=== PATIENT | female | born 1990 | race Caucasian/White ===

== ENCOUNTER 2019-09-15 09:41 | Inpatient (IN) | payer SELFPAY ==
[~2019-09-15] VITALS: Ht 167.6 cm; Wt 127.0 kg
--- NOTE | 2019-09-15 10:16 | NUR ---
CONTACT WITH PT, 29 MYR OLD FEMALE HERE WITH C/O "REALLY BAD BACK PAIN (FOR A MONTH), I HAVE A BUNCH OF RED DOTS GOING UP MY LEGS (BEGAN YESTERDAY). PT WITH INCREASED RR. ENC RELAXATION BREATHING. PTS MOTHER AND GRANDMOTHER AT BEDSIDE.
--- NOTE | 2019-09-15 10:29 | NUR ---
REPORT TO LESLY CALZADA
--- NOTE | 2019-09-15 10:33 | NUR ---
REPORT FROM ZHENG PATEL. PT RESTING IN ROOM WIHT FAMILY AT BS. VSS. DR. POTTS TO BS FOR ASSESSMENT. AWAITING ORDERS.
[2019-09-15] MEDS ORDERED: METHOCARBAMOL 750 MG TABLET ONE (10:37)
[2019-09-15] MEDS ORDERED: KETOROLAC 60 MG/2 ML ONE (10:38)
--- NOTE | 2019-09-15 10:44 | NUR ---
PT UP SELF TO RR TO PROVIDE UA SAMPLE. PT MEDICATED PER MAR. PT TOLERATED WELL. VSS.
[2019-09-15 10:57] LABS: CULTURE INDICATED? NO; HCG UR SG 1.014 (1.003-1.030); MICROSCOPIC AUTO
[2019-09-15] MEDS ORDERED: METHOCARBAMOL 750 MG TABLET PO ONE (11:00)
[2019-09-15] MEDS ORDERED: KETOROLAC 30 MG/1 ML IM ONE (11:00)
--- NOTE | 2019-09-15 11:19 | NUR ---
NEW ORDERS RECEIVED FOR LABS AND US.
[2019-09-15 11:43] LABS: ALANINE AMINOTRANSFERASE 34 U/L (12-78); ALBUMIN 3.1 g/dL (3.4-5.0); ANION GAP 6 mmol/L (5-15); CALCIUM 8.6 mg/dL (8.5-10.1); CHLORIDE 110 mmol/L (98-107); CREATININE 0.54 mg/dL (0.55-1.02)
[2019-09-15 11:45] LABS: ALKALINE PHOSPHATASE 62 U/L (45-117); BILIRUBIN,TOTAL 0.5 mg/dL (0.2-1.0)
--- NOTE | 2019-09-15 11:46 | NUR ---
PT RESTING IN ROOM WITH FAMILY AT BS. VSS. NO NEEDS EXPRESSED. US RESULTED. AWAITING LAB RESULTS.
[2019-09-15 12:08] LABS: MEAN CORPUSCULAR HGB CONC 32.1 g/dL (32.4-35.8); MEAN CORPUSCULAR VOLUME 74.7 fL (80-100); MEAN PLATELET VOLUME 8.6 fL (7.4-10.4); RED BLOOD COUNT 3.85 x10^6/uL (3.82-5.3); RED CELL DISTRIBUTION WIDTH 19.7 % (9.6-15.2)
[2019-09-15 12:11] LABS: PLATELET COUNT 35 x10^3/uL (130-400)
--- NOTE | 2019-09-15 12:11 | NUR ---
LAB CALLED REGARDING DELAYED RESULTS. CRITICAL LABS READ BACK AND REPEATED TO DR. POTTS.
[2019-09-15 12:14] LABS: MD YES
[2019-09-15 12:19] LABS: BAND#(MANUAL) 1.79 x10^3/uL; BANDS%(MANUAL) 5 % (0-7); EOS#(MANUAL) 0.36 x10^3/uL (0.0-0.4); EOS% (MANUAL) 1 % (1-7); LYMPHS% (MANUAL) 35 % (22-44); MONOS#(MANUAL) 0.71 x10^3/uL (0.3-2.7); MONOS% (MANUAL) 2 % (2-9); SEG#(MANUAL) 3.57 x10^3/uL (1.8-6.8); SEGS% (MANUAL) 10 % (42-75)
[2019-09-15 12:20] LABS: OTHER CELLS # (MANUAL) 16.78 x10^3/uL (0-0); OTHER CELLS % (MANUAL) 47 % (0-0)
--- NOTE | 2019-09-15 12:21 | NUR ---
PT RESTING IN ROOM. VSS. IV ESTABLISHED. NEW ORDERS RECEIVED. AWAITING CT.
[2019-09-15] MEDS ORDERED: MORPHINE SULFATE 4 MG/ML, 1ML ONE (12:27)
[2019-09-15 12:29] LABS: <PLATELET ESTIMATE> DECREASED
[2019-09-15 12:30] LABS: <PLT MORPHOLOGY> NORMAL PLT MORPH; ANISOCYTOSIS 1+; HYPOCHROMIA 1+; MICROCYTOSIS 1+; OVALOCYTES 1+
[2019-09-15] MEDS ORDERED: MORPHINE SULFATE 4 MG/ML, 1ML IVPush PRN (12:30)
[2019-09-15] MEDS ORDERED: GADOTERATE 10 MMOL/20 ML SYR ONE (13:19)
--- NOTE | 2019-09-15 13:50 | NUR ---
PT RESTING IN ROOM WITH FAMILY AT BS. VSS. AWAITING MRI READ. PT STATES IMPROVED PAIN.
--- NOTE | 2019-09-15 15:25 | NUR ---
REPORT TO ZHENG CABRERA. PT READY FOR TRANSPORT.
[2019-09-15 15:47] VITALS: BP 124/78
[2019-09-15] MEDS ORDERED: ONDANSETRON ODT 4 MG PO PRN (16:30)
[2019-09-15] MEDS ORDERED: ACETAMINOPHEN 325 MG TABLET PO PRN (16:30)
[2019-09-15] MEDS ORDERED: ONDANSETRON 2MG/ML, 2ML IVPush PRN (16:30)
[2019-09-15] MEDS ORDERED: ENALAPRILAT 1.25 MG/ML, 2ML IVPush PRN (16:30)
[2019-09-15] MEDS ORDERED: METHOCARBAMOL 500 MG TABLET PO PRN (16:30)
[2019-09-15] MEDS ORDERED: LABETALOL 5MG/ML, 20ML IVPush PRN (16:30)
[2019-09-15] MEDS ORDERED: morphine SULFATE 10 MG/ML, 1ML IVPush PRN (16:30)
[2019-09-15] MEDS ORDERED: POLYETHYLENE GLYCOL 17 GM PACKET PO PRN (16:30)
[2019-09-15] MEDS ORDERED: LIDODERM 5% PATCH TD PRN (16:30)
[2019-09-15] MEDS ORDERED: BISACODYL 10 MG SUPP PR PRN (16:30)
[2019-09-15] MEDS ORDERED: OXYcodone IR 5MG TABLET PO PRN (16:30)
[2019-09-16] MEDS ORDERED: SENNA/DOCUSATE TABLET PO SCH (09:00)
== END 2019-09-15 18:41 | disposition short-term general hospital (02) | DRG 835 ==
LOC: ED 11:13 → 4NW 14:32
PROVIDERS: ADMIT Family Medicine; ATTEND Family Medicine
DX: C91.00 Acute lymphoblastic leukemia not having achieved remission (principal); Z68.42 Body mass index [BMI] 45.0-49.9, adult; D64.9 Anemia, unspecified; D69.6 Thrombocytopenia, unspecified; E11.9 Type 2 diabetes mellitus without complications; E66.01 Morbid (severe) obesity due to excess calories; E88.09 Other disorders of plasma-protein metabolism, not elsewhere classified; K76.0 Fatty (change of) liver, not elsewhere classified; K80.20 Calculus of gallbladder without cholecystitis without obstruction; M19.90 Unspecified osteoarthritis, unspecified site; M51.16 Intervertebral disc disorders with radiculopathy, lumbar region; Z86.73 Personal history of transient ischemic attack (TIA), and cerebral infarction without residual deficits; Z87.442 Personal history of urinary calculi
CPT/HCPCS: 36415; 72158; 76770; 80053; 81001; 81025; 83615; 84550; 85025; G0378; J1885; A9575; J2270

== ENCOUNTER 2019-10-06 14:31 | Inpatient (IN) | payer MEDICAID, OTHER ==
[~2019-10-06] VITALS: Ht 167.6 cm; Wt 147.6 kg
--- NOTE | 2019-10-06 14:52 | NUR ---
TASK RN: THIS RN IN TO ASSESS PT. PT GIVEN GOWN AND ASKED TO CHANGE. THIS RN LEFT FOR PRIVACY. FAMILY BEDSIDE.
--- NOTE | 2019-10-06 14:57 | NUR ---
TASK RN: 29 Y/O FEMALE PRESENTS TO ED WITH C/O N/V. PER PT "I'VE BEEN NAUSEOUS AND VOMITING FOR A FEW DAYS. THE LAST TIME I THREW UP WAS TODAY ABOUT 2PM. I'VE THROWN UP TWICE TODAY. I HAD CHEMO ON WEDNESDAY. I TOOK SOME ZOFRAN AT 0600 TODAY. I CALLED MY ONC . THEY COULDN'T GET ME IN SO THEY TOLD ME TO COME HERE." PT PLACED ON CONT PULSE OX,NIBP. PT IN GOWN AND WARM BLANKETS GIVEN. FAMILY BEDSIDE. NO C/O TRAUMA, CP, SOB, D.
--- NOTE | 2019-10-06 15:01 | NUR ---
PT ON REVERSE ISO. ALL FAMILY MEMBERS AND PT HAVE MASK ON WELL.
--- NOTE | 2019-10-06 15:23 | NUR ---
I AM ASSUMING CARE OF THIS PT FROM BRYCE (ZHENG) AT THIS TIME. SBAR REPORT WAS EXCHANGED AT THE BEDSIDE.
--- NOTE | 2019-10-06 15:25 | NUR ---
TASK RN: BEDSIDE REPORT TO ZHENG MO.
[2019-10-06 16:21] LABS: ANION GAP 12 mmol/L (5-15); CALCIUM 7.4 mg/dL (8.5-10.1); CHLORIDE 92 mmol/L (98-107)
[2019-10-06 16:24] LABS: ALANINE AMINOTRANSFERASE 403 U/L (12-78); ALKALINE PHOSPHATASE 183 U/L (45-117); CREATININE 0.81 mg/dL (0.55-1.02); TOTAL PROTEIN 3.9 g/dL (6.4-8.2)
[2019-10-06 16:27] LABS: BILIRUBIN,TOTAL 15.1 mg/dL (0.2-1.0)
--- NOTE | 2019-10-06 16:29 | NUR ---
BREAK (RN) TO ATTEMPT PORT ACCESS.
--- NOTE | 2019-10-06 16:29 | NUR ---
UNABLE TO OBTAIN PORT ACCESS AFTER TWO ATTEMPTS.
[2019-10-06 16:35] LABS: MEAN CORPUSCULAR HGB CONC 31.1 g/dL (32.4-35.8); MEAN CORPUSCULAR VOLUME 86.6 fL (80-100); MEAN PLATELET VOLUME 10.9 fL (7.4-10.4); PLATELET COUNT 126 x10^3/uL (130-400); RED BLOOD COUNT 3.23 x10^6/uL (3.82-5.3); RED CELL DISTRIBUTION WIDTH 20.5 % (9.6-15.2)
--- NOTE | 2019-10-06 16:40 | NUR ---
Doni RN: Port in L upper chest accessed utilizing sterile technique w/ 1" needle. Pt tolerated well, port flushes w/out difficulty or discomfort but unable to draw back blood after multiple flushes and repositioning.
--- NOTE | 2019-10-06 16:51 | NUR ---
PT AMBULATED TO THE RESTROOM WITH A STEADY GAIT. URINE SAMPLE PROVIDED, AND WALKED TO THE LAB FOR ANALYSIS. Addendum: 10/06/19 at 1703 by ROMANA urine sample not yet provided. unable to void. pt is very weak with ambulation. wheelchair provided
[2019-10-06 17:11] LABS: MD YES
--- NOTE | 2019-10-06 17:57 | NUR ---
NOT TO TRANSFUSE PER ERP.
[2019-10-06] MEDS ORDERED: ONDANSETRON 2MG/ML, 2ML ONE (18:11)
--- NOTE | 2019-10-06 19:06 | NUR ---
report from lina cruz
--- NOTE | 2019-10-06 19:11 | NUR ---
RADHA (RN) IS ASSUMING CARE OF THIS PT AT THIS TIME. SBAR REPORT WAS EXCHANGED AT THE BEDSIDE.
[2019-10-06 19:12] LABS: BAND#(MANUAL) 0.02 x10^3/uL; BANDS%(MANUAL) 2 % (0-7); LYMPH#(MANUAL) 0.15 x10^3/uL (1-3.4); LYMPHS% (MANUAL) 15 % (22-44); MONOS#(MANUAL) 0.03 x10^3/uL (0.3-2.7); MONOS% (MANUAL) 3 % (2-9); NRBC % (MANUAL) 2 % (0-1); SEGS% (MANUAL) 80 % (42-75)
[2019-10-06 19:13] LABS: ANISOCYTOSIS 2+; BASOPHILLIC STIPPLING 1+; HYPOCHROMIA 1+; MICROCYTOSIS 1+; POLYCHROMASIA 1+
[2019-10-06 19:14] LABS: HOWELL-JOLLY BODIES 1+; STOMATOCYTES 1+
[2019-10-06 19:15] LABS: <PLATELET ESTIMATE> DECREASED; <PLT MORPHOLOGY> NORMAL PLT MORPH
--- NOTE | 2019-10-06 19:59 | NUR ---
REPROT TO 4TH FLOOR RN FOR ROOM 432 ABDIRASHID
[2019-10-06 20:44] VITALS: BP 86/50
[2019-10-06 20:53] LABS: BILIRUBIN,INDIRECT 3.1 mg/dL (0.0-2.0)
[2019-10-06] MEDS ORDERED: LIDODERM 5% PATCH TD PRN (21:00)
[2019-10-06] MEDS ORDERED: DOCUSATE 100 MG CAPSULE PO PRN (21:00)
[2019-10-06] MEDS ORDERED: ENOXAPARIN 40 MG/0.4 ML SQ SCH (21:00)
[2019-10-06] MEDS ORDERED: ONDANSETRON 2MG/ML, 2ML IVPush PRN (21:00)
[2019-10-06 21:03] LABS: BILIRUBIN, DIRECT 12.2 mg/dL (0.1-0.2); BILIRUBIN,TOTAL 15.3 mg/dL (0.2-1.0)
[2019-10-06] MEDS: LORazepam 2 MG/ML, 1ML IVPush PRN (21:26)
[2019-10-06] MEDS: FAMOTIDINE 20 MG TABLET PO SCH (21:27)
[2019-10-06] MEDS: SODIUM CHLORIDE 0.9% 1,000 ML IV SCH (21:27)
[2019-10-06] MEDS ORDERED: ONDA4TAB7 PO (21:50)
[2019-10-06] MEDS ORDERED: APIX5TAB4 PO (21:50)
[2019-10-06] MEDS ORDERED: CITA10TA8 PO (21:50)
[2019-10-06] MEDS ORDERED: PRED5POW3 PO (21:50)
[2019-10-06] MEDS ORDERED: SULF1TAB24 PO (21:50)
[2019-10-06] MEDS ORDERED: METF-688 PO (21:50)
[2019-10-06] MEDS ORDERED: FAMO10TA77 PO (21:50)
[2019-10-06 22:44] LABS: CULTURE INDICATED? YES; MICROSCOPIC INDICATED
[2019-10-06] MEDS: APIXABAN 5 MG TABLET PO SCH (23:48)
[2019-10-06] MEDS: CITALOPRAM 10 MG TABLET PO SCH (23:48)
[2019-10-07 00:17] VITALS: BP 95/54
[2019-10-07] MEDS ORDERED: CEFTRIAXONE PMX 2GM/50ML 50 ML IV SCH (00:30)
[2019-10-07 03:29] LABS: CLOSTRIDIUM DIFFICILE ANTIGEN POSITIVE; CLOSTRIDIUM DIFFICILE TOXIN NEGATIVE (Negative)
[2019-10-07] MEDS: SODIUM CHLORIDE 0.9% 1,000 ML IV SCH ×3 (05:19→20:23)
[2019-10-07 06:56] VITALS: BP 92/51
[2019-10-07] MEDS ORDERED: SODIUM CHLORIDE 0.9% 1,000ML IVBOLUS ONE (07:00)
[2019-10-07 07:22] VITALS: BP 112/61
[2019-10-07 08:00] LABS: MD YES
[2019-10-07 08:04] LABS: ANION GAP 11 mmol/L (5-15); CALCIUM 6.9 mg/dL (8.5-10.1); CHLORIDE 94 mmol/L (98-107)
[2019-10-07 08:05] LABS: CREATININE 0.61 mg/dL (0.55-1.02)
[2019-10-07 08:07] LABS: ALBUMIN 1.8 g/dL (3.4-5.0)
[2019-10-07] MEDS: CITALOPRAM 10 MG TABLET PO SCH ×2 (08:07→20:24)
[2019-10-07] MEDS: FAMOTIDINE 20 MG TABLET PO SCH ×2 (08:07→20:23)
[2019-10-07] MEDS: APIXABAN 5 MG TABLET PO SCH ×2 (08:07→20:24)
[2019-10-07] MEDS: LIDODERM REMOVE PATCH NOTE XX SCH (08:08)
[2019-10-07 08:09] LABS: BILIRUBIN,INDIRECT 2.2 mg/dL (0.0-2.0); BILIRUBIN,TOTAL 13.1 mg/dL (0.2-1.0); TOTAL PROTEIN 3.7 g/dL (6.4-8.2)
[2019-10-07 08:22] LABS: BILIRUBIN, DIRECT 10.9 mg/dL (0.1-0.2)
[2019-10-07 09:19] LABS: MEAN CORPUSCULAR HEMOGLOBIN 26.9 pg (27.0-34.8); MEAN CORPUSCULAR HGB CONC 30.9 g/dL (32.4-35.8); MEAN CORPUSCULAR VOLUME 87.1 fL (80-100); MEAN PLATELET VOLUME 10.7 fL (7.4-10.4); PLATELET COUNT 122 x10^3/uL (130-400); RED CELL DISTRIBUTION WIDTH 21.2 % (9.6-15.2)
[2019-10-07 09:23] LABS: BAND#(MANUAL) 0.07 x10^3/uL; BANDS%(MANUAL) 6 % (0-7); METAMYELOCYTES# (MANUAL) 0.02 x10^3/uL (0-0); METAMYELOCYTES% (MANUAL) 2 % (0-1); MONOS#(MANUAL) 0.05 x10^3/uL (0.3-2.7); MONOS% (MANUAL) 4 % (2-9); NRBC % (MANUAL) 2 % (0-1); SEG#(MANUAL) 1.06 x10^3/uL (1.8-6.8); SEGS% (MANUAL) 88 % (42-75)
[2019-10-07 09:24] LABS: <PLATELET ESTIMATE> DECREASED; <PLT MORPHOLOGY> NORMAL PLT MORPH; TOXIC GRAN 1+
[2019-10-07 09:26] LABS: ANISOCYTOSIS 2+; BASOPHILLIC STIPPLING 1+; HOWELL-JOLLY BODIES 2+; MICROCYTOSIS 1+; PAPPENHEIMER BODIES 1+
[2019-10-07 09:27] LABS: HYPOCHROMIA 1+; SCHISTOCYTES 1+; STOMATOCYTES 1+; TEAR DROPS 1+
[2019-10-07] MEDS ORDERED: CIPROFLOXACIN 250 MG TABLET PO SCH (09:30)
[2019-10-07 12:29] VITALS: BP 107/65
[2019-10-07 17:49] LABS: ANION GAP 11 mmol/L (5-15); CALCIUM 6.7 mg/dL (8.5-10.1); CHLORIDE 94 mmol/L (98-107); CREATININE 0.46 mg/dL (0.55-1.02)
[2019-10-07 18:02] LABS: MD YES; MEAN CORPUSCULAR HEMOGLOBIN 27.5 pg (27.0-34.8); MEAN CORPUSCULAR HGB CONC 31.1 g/dL (32.4-35.8); MEAN CORPUSCULAR VOLUME 88.3 fL (80-100); MEAN PLATELET VOLUME 11.1 fL (7.4-10.4); PLATELET COUNT 125 x10^3/uL (130-400); RED BLOOD COUNT 2.83 x10^6/uL (3.82-5.3); RED CELL DISTRIBUTION WIDTH 20.4 % (9.6-15.2)
[2019-10-07 18:07] LABS: BAND#(MANUAL) 0.22 x10^3/uL; BANDS%(MANUAL) 10 % (0-7); LYMPHS% (MANUAL) 9 % (22-44); METAMYELOCYTES# (MANUAL) 0.04 x10^3/uL (0-0); METAMYELOCYTES% (MANUAL) 2 % (0-1); MYELOCYTES# (MANUAL) 0.02 x10^3/uL (0-0); MYELOCYTES% (MANUAL) 1 % (0-0); NRBC % (MANUAL) 3 % (0-1); SEG#(MANUAL) 1.72 x10^3/uL (1.8-6.8); SEGS% (MANUAL) 78 % (42-75)
[2019-10-07 18:08] LABS: ANISOCYTOSIS 2+; BASOPHILLIC STIPPLING 1+; HYPOCHROMIA 1+; MICROCYTOSIS 1+; SCHISTOCYTES 1+; STOMATOCYTES 1+; TEAR DROPS 1+
[2019-10-07 18:10] LABS: <PLATELET ESTIMATE> DECREASED; <PLT MORPHOLOGY> NORMAL PLT MORPH; HOWELL-JOLLY BODIES 2+; PAPPENHEIMER BODIES 1+; TOXIC GRAN 1+
[2019-10-07 18:46] VITALS: BP 93/54
[2019-10-08] VITALS (7 sets, daily range): BP systolic 91–106; BP diastolic 55–69
[2019-10-08] MEDS: LORazepam 2 MG/ML, 1ML IVPush PRN ×2 (01:00→18:24)
[2019-10-08] MEDS: CEFTRIAXONE PMX 2GM/50ML 50 ML IV SCH (01:00)
[2019-10-08] MEDS: SODIUM CHLORIDE 0.9% 1,000 ML IV SCH ×3 (04:53→23:20)
[2019-10-08 06:44] LABS: INTERNATIONAL NORMALIZED RATIO 1.26 (0.93-1.1); PROTHROMBIN TIME 13.1 Seconds (9.6-11.5)
[2019-10-08 06:53] LABS: CHLORIDE 96 mmol/L (98-107)
[2019-10-08 07:01] LABS: ALANINE AMINOTRANSFERASE 240 U/L (12-78); ALBUMIN 1.6 g/dL (3.4-5.0); ALKALINE PHOSPHATASE 134 U/L (45-117); ANION GAP 7 mmol/L (5-15); BILIRUBIN,TOTAL 11.1 mg/dL (0.2-1.0); CALCIUM 6.8 mg/dL (8.5-10.1); TOTAL PROTEIN 3.7 g/dL (6.4-8.2)
[2019-10-08 07:53] LABS: MD YES
[2019-10-08 08:50] LABS: MEAN CORPUSCULAR HEMOGLOBIN 27.5 pg (27.0-34.8); MEAN CORPUSCULAR HGB CONC 31.2 g/dL (32.4-35.8); MEAN CORPUSCULAR VOLUME 88.3 fL (80-100); MEAN PLATELET VOLUME 11.1 fL (7.4-10.4); PLATELET COUNT 128 x10^3/uL (130-400); RED BLOOD COUNT 2.52 x10^6/uL (3.82-5.3)
[2019-10-08 08:56] LABS: <PLATELET ESTIMATE> DECREASED; ANISOCYTOSIS 2+; BAND#(MANUAL) 0.12 x10^3/uL; BANDS%(MANUAL) 4 % (0-7); BASOPHILLIC STIPPLING 1+; HOWELL-JOLLY BODIES 2+; HYPOCHROMIA 1+; LYMPH#(MANUAL) 0.54 x10^3/uL (1-3.4); LYMPHS% (MANUAL) 18 % (22-44); METAMYELOCYTES# (MANUAL) 0.24 x10^3/uL (0-0); METAMYELOCYTES% (MANUAL) 8 % (0-1); MICROCYTOSIS 1+; MONOS#(MANUAL) 0.06 x10^3/uL (0.3-2.7); MONOS% (MANUAL) 2 % (2-9); MYELOCYTES# (MANUAL) 0.09 x10^3/uL (0-0); MYELOCYTES% (MANUAL) 3 % (0-0); NRBC % (MANUAL) 6 % (0-1); PAPPENHEIMER BODIES 1+; SEG#(MANUAL) 1.95 x10^3/uL (1.8-6.8); SEGS% (MANUAL) 65 % (42-75); STOMATOCYTES 1+; TEAR DROPS 1+; TOXIC GRAN 1+
[2019-10-08 08:57] LABS: LARGE PLATELETS 1+
[2019-10-08] MEDS: FAMOTIDINE 20 MG TABLET PO SCH ×2 (09:25→20:40)
[2019-10-08] MEDS: CITALOPRAM 10 MG TABLET PO SCH ×2 (09:25→20:40)
[2019-10-08] MEDS: LIDODERM REMOVE PATCH NOTE XX SCH (09:30)
[2019-10-08] MEDS: APIXABAN 5 MG TABLET PO SCH ×2 (11:20→20:41)
[2019-10-09 00:11] VITALS: BP 101/56
[2019-10-09] MEDS: CEFTRIAXONE PMX 2GM/50ML 50 ML IV SCH (01:21)
[2019-10-09 04:43] LABS: ALANINE AMINOTRANSFERASE 211 U/L (12-78); ALBUMIN 1.6 g/dL (3.4-5.0); ANION GAP 8 mmol/L (5-15); CALCIUM 6.9 mg/dL (8.5-10.1); CHLORIDE 101 mmol/L (98-107); CREATININE 0.33 mg/dL (0.55-1.02)
[2019-10-09 04:46] LABS: ALKALINE PHOSPHATASE 133 U/L (45-117); BILIRUBIN,TOTAL 11.3 mg/dL (0.2-1.0); TOTAL PROTEIN 3.7 g/dL (6.4-8.2)
[2019-10-09 05:48] LABS: MEAN CORPUSCULAR HEMOGLOBIN 28.2 pg (27.0-34.8); MEAN CORPUSCULAR HGB CONC 31.9 g/dL (32.4-35.8); MEAN CORPUSCULAR VOLUME 88.4 fL (80-100); MEAN PLATELET VOLUME 10.8 fL (7.4-10.4); PLATELET COUNT 135 x10^3/uL (130-400); RED BLOOD COUNT 3.06 x10^6/uL (3.82-5.3); RED CELL DISTRIBUTION WIDTH 19.5 % (9.6-15.2)
[2019-10-09 05:49] LABS: MD YES
[2019-10-09 05:51] LABS: BAND#(MANUAL) 2.06 x10^3/uL; BANDS%(MANUAL) 24 % (0-7); LYMPH#(MANUAL) 0.43 x10^3/uL (1-3.4); LYMPHS% (MANUAL) 5 % (22-44); METAMYELOCYTES% (MANUAL) 7 % (0-1); MONOS#(MANUAL) 0.17 x10^3/uL (0.3-2.7); MONOS% (MANUAL) 2 % (2-9); MYELOCYTES# (MANUAL) 0.26 x10^3/uL (0-0); MYELOCYTES% (MANUAL) 3 % (0-0); NRBC % (MANUAL) 14 % (0-1); SEG#(MANUAL) 5.07 x10^3/uL (1.8-6.8); SEGS% (MANUAL) 59 % (42-75)
[2019-10-09 05:52] LABS: ANISOCYTOSIS 2+; HYPOCHROMIA 1+; MICROCYTOSIS 1+; POLYCHROMASIA 1+; TOXIC GRAN 1+
[2019-10-09 05:53] LABS: BASOPHILLIC STIPPLING 1+; HOWELL-JOLLY BODIES 1+; PAPPENHEIMER BODIES 1+; STOMATOCYTES 1+
[2019-10-09 05:55] LABS: <PLATELET ESTIMATE> ADEQUATE
[2019-10-09 05:56] LABS: LARGE PLATELETS 1+
[2019-10-09 06:31] VITALS: BP 106/59
[2019-10-09 07:36] LABS: INTERNATIONAL NORMALIZED RATIO 1.26 (0.93-1.1); PROTHROMBIN TIME 13.1 Seconds (9.6-11.5)
[2019-10-09 09:14] LABS: BILIRUBIN, DIRECT 9.6 mg/dL (0.1-0.2)
[2019-10-09 09:15] LABS: BILIRUBIN,INDIRECT 2.2 mg/dL (0.0-2.0); BILIRUBIN,TOTAL 11.8 mg/dL (0.2-1.0)
[2019-10-09] MEDS: LIDODERM REMOVE PATCH NOTE XX SCH (09:30)
[2019-10-09] MEDS: CITALOPRAM 10 MG TABLET PO SCH ×2 (09:44→20:40)
[2019-10-09] MEDS: FAMOTIDINE 20 MG TABLET PO SCH ×2 (09:44→20:40)
[2019-10-09] MEDS: APIXABAN 5 MG TABLET PO SCH ×2 (09:44→20:40)
[2019-10-09] MEDS: SODIUM CHLORIDE 0.9% 1,000 ML IV SCH ×2 (09:45→17:23)
[2019-10-09 12:54] VITALS: BP 104/59
[2019-10-09 18:09] VITALS: BP 117/85
[2019-10-09] MEDS: VANCOMYCIN 50 MG/ML ORAL SUSP PO SCH (20:40)
[2019-10-09] MEDS: LORazepam 2 MG/ML, 1ML IVPush PRN (21:28)
[2019-10-10] MEDS: VANCOMYCIN 50 MG/ML ORAL SUSP PO SCH ×3 (02:03→14:21)
[2019-10-10] MEDS: CEFTRIAXONE PMX 2GM/50ML 50 ML IV SCH (02:03)
[2019-10-10] MEDS: SODIUM CHLORIDE 0.9% 1,000 ML IV SCH ×4 (02:03→21:13)
[2019-10-10 04:58] LABS: CALCIUM 7.1 mg/dL (8.5-10.1); CHLORIDE 106 mmol/L (98-107)
[2019-10-10 05:00] VITALS: BP 106/49
[2019-10-10 05:04] LABS: ALANINE AMINOTRANSFERASE 189 U/L (12-78); ALBUMIN 1.6 g/dL (3.4-5.0); ALKALINE PHOSPHATASE 152 U/L (45-117); ANION GAP 6 mmol/L (5-15); BILIRUBIN,TOTAL 11.6 mg/dL (0.2-1.0); CREATININE 0.32 mg/dL (0.55-1.02); TOTAL PROTEIN 3.7 g/dL (6.4-8.2)
[2019-10-10 06:02] LABS: MEAN CORPUSCULAR HEMOGLOBIN 28.2 pg (27.0-34.8); MEAN CORPUSCULAR HGB CONC 32.2 g/dL (32.4-35.8); MEAN CORPUSCULAR VOLUME 87.6 fL (80-100); MEAN PLATELET VOLUME 10.5 fL (7.4-10.4); PLATELET COUNT 138 x10^3/uL (130-400); RED BLOOD COUNT 3.05 x10^6/uL (3.82-5.3); RED CELL DISTRIBUTION WIDTH 20.6 % (9.6-15.2)
[2019-10-10 06:03] LABS: MD YES
[2019-10-10 06:06] LABS: ANISOCYTOSIS 2+; BAND#(MANUAL) 2.42 x10^3/uL; BANDS%(MANUAL) 22 % (0-7); LYMPHS% (MANUAL) 10 % (22-44); METAMYELOCYTES# (MANUAL) 0.77 x10^3/uL (0-0); METAMYELOCYTES% (MANUAL) 7 % (0-1); MICROCYTOSIS 1+; MONOS#(MANUAL) 0.44 x10^3/uL (0.3-2.7); MONOS% (MANUAL) 4 % (2-9); MYELOCYTES# (MANUAL) 0.44 x10^3/uL (0-0); MYELOCYTES% (MANUAL) 4 % (0-0); NRBC % (MANUAL) 34 % (0-1); POLYCHROMASIA 1+; SEG#(MANUAL) 5.83 x10^3/uL (1.8-6.8); SEGS% (MANUAL) 53 % (42-75); STOMATOCYTES 1+
[2019-10-10 06:07] LABS: BASOPHILLIC STIPPLING 1+; ECHINOCYTES 1+; HOWELL-JOLLY BODIES 1+
[2019-10-10 06:08] LABS: <PLATELET ESTIMATE> ADEQUATE; LARGE PLATELETS 1+; PAPPENHEIMER BODIES 1+
[2019-10-10 08:02] VITALS: BP 110/70
[2019-10-10] MEDS: LIDODERM REMOVE PATCH NOTE XX SCH (09:30)
[2019-10-10] MEDS: CITALOPRAM 10 MG TABLET PO SCH ×2 (10:25→21:10)
[2019-10-10] MEDS: MULTIVITS,STRESS FORMULA 1 TABLET PO SCH (10:25)
[2019-10-10] MEDS: LEVOCARNITINE 100 MG/ML PO SCH ×3 (10:25→21:10)
[2019-10-10] MEDS: FAMOTIDINE 20 MG TABLET PO SCH ×2 (10:25→21:10)
[2019-10-10] MEDS: APIXABAN 5 MG TABLET PO SCH ×2 (10:25→21:10)
[2019-10-10 12:18] VITALS: BP 102/62
[2019-10-10 18:47] VITALS: BP 114/70
[2019-10-10] MEDS: LORazepam 2 MG/ML, 1ML IVPush PRN (21:11)
[2019-10-11 00:58] VITALS: BP 115/75
[2019-10-11] MEDS: PROMETHAZINE 25MG TABLET PO PRN (03:59)
[2019-10-11] MEDS: SODIUM CHLORIDE 0.9% 1,000 ML IV SCH ×3 (04:00→19:35)
[2019-10-11 05:24] LABS: ALBUMIN 1.6 g/dL (3.4-5.0); ANION GAP 9 mmol/L (5-15); CALCIUM 7.1 mg/dL (8.5-10.1); CHLORIDE 104 mmol/L (98-107)
[2019-10-11 05:28] LABS: ALANINE AMINOTRANSFERASE 192 U/L (12-78); ALKALINE PHOSPHATASE 154 U/L (45-117); BILIRUBIN,TOTAL 12.4 mg/dL (0.2-1.0); CREATININE 0.42 mg/dL (0.55-1.02); TOTAL PROTEIN 3.8 g/dL (6.4-8.2)
[2019-10-11 06:11] LABS: INTERNATIONAL NORMALIZED RATIO 1.22 (0.93-1.1); PROTHROMBIN TIME 12.7 Seconds (9.6-11.5)
[2019-10-11 06:22] LABS: MD YES; MEAN CORPUSCULAR HEMOGLOBIN 28.5 pg (27.0-34.8); MEAN CORPUSCULAR VOLUME 89.1 fL (80-100); MEAN PLATELET VOLUME 10.8 fL (7.4-10.4); PLATELET COUNT 133 x10^3/uL (130-400); RED BLOOD COUNT 3.34 x10^6/uL (3.82-5.3); RED CELL DISTRIBUTION WIDTH 20.3 % (9.6-15.2)
[2019-10-11 06:33] LABS: <PLATELET ESTIMATE> ADEQUATE; ANISOCYTOSIS 2+; BAND#(MANUAL) 1.31 x10^3/uL; BANDS%(MANUAL) 12 % (0-7); BASOPHILLIC STIPPLING 1+; ECHINOCYTES 1+; HOWELL-JOLLY BODIES 1+; LYMPH#(MANUAL) 0.55 x10^3/uL (1-3.4); LYMPHS% (MANUAL) 5 % (22-44); METAMYELOCYTES% (MANUAL) 11 % (0-1); MICROCYTOSIS 1+; MONOS% (MANUAL) 11 % (2-9); MYELOCYTES# (MANUAL) 0.55 x10^3/uL (0-0); MYELOCYTES% (MANUAL) 5 % (0-0); NRBC % (MANUAL) 111 % (0-1); PAPPENHEIMER BODIES 1+; SEGS% (MANUAL) 56 % (42-75); STOMATOCYTES 1+
[2019-10-11 06:34] LABS: LARGE PLATELETS 1+
[2019-10-11 06:36] LABS: POLYCHROMASIA 1+
[2019-10-11 06:37] LABS: SPHEROCYTES 1+
[2019-10-11 06:51] VITALS: BP 111/75
[2019-10-11] MEDS: MULTIVITS,STRESS FORMULA 1 TABLET PO SCH (09:19)
[2019-10-11] MEDS: CITALOPRAM 10 MG TABLET PO SCH ×2 (09:19→21:00)
[2019-10-11] MEDS: APIXABAN 5 MG TABLET PO SCH ×2 (09:19→21:01)
[2019-10-11] MEDS: FAMOTIDINE 20 MG TABLET PO SCH ×2 (09:19→21:00)
[2019-10-11] MEDS: LEVOCARNITINE 100 MG/ML PO SCH ×3 (09:20→21:01)
[2019-10-11] MEDS: LIDODERM REMOVE PATCH NOTE XX SCH (09:20)
[2019-10-11 12:30] VITALS: BP 118/77
[2019-10-11] MEDS: LORazepam 2 MG/ML, 1ML IVPush PRN (18:35)
[2019-10-11 19:34] VITALS: BP 110/63
[2019-10-12 00:35] VITALS: BP 99/63
[2019-10-12] MEDS: SODIUM CHLORIDE 0.9% 1,000 ML IV SCH (04:37)
[2019-10-12 05:29] LABS: CHLORIDE 105 mmol/L (98-107)
[2019-10-12 05:36] LABS: ALANINE AMINOTRANSFERASE 174 U/L (12-78); ALBUMIN 1.6 g/dL (3.4-5.0); ALKALINE PHOSPHATASE 163 U/L (45-117); ANION GAP 7 mmol/L (5-15); BILIRUBIN,TOTAL 12.5 mg/dL (0.2-1.0); CALCIUM 7.4 mg/dL (8.5-10.1); CREATININE 0.31 mg/dL (0.55-1.02); TOTAL PROTEIN 3.7 g/dL (6.4-8.2)
[2019-10-12 05:58] LABS: MEAN CORPUSCULAR HEMOGLOBIN 28.9 pg (27.0-34.8); MEAN CORPUSCULAR HGB CONC 31.9 g/dL (32.4-35.8); MEAN CORPUSCULAR VOLUME 90.8 fL (80-100); MEAN PLATELET VOLUME 10.4 fL (7.4-10.4); PLATELET COUNT 122 x10^3/uL (130-400); RED BLOOD COUNT 3.19 x10^6/uL (3.82-5.3); RED CELL DISTRIBUTION WIDTH 20.8 % (9.6-15.2)
[2019-10-12 05:59] LABS: MD YES
[2019-10-12 06:02] LABS: ANISOCYTOSIS 2+; BANDS%(MANUAL) 20 % (0-7); EOS% (MANUAL) 1 % (1-7); LYMPHS% (MANUAL) 5 % (22-44); METAMYELOCYTES% (MANUAL) 11 % (0-1); MICROCYTOSIS 1+; MONOS% (MANUAL) 5 % (2-9); MYELOCYTES% (MANUAL) 4 % (0-0); NRBC % (MANUAL) 102 % (0-1); POLYCHROMASIA 2+; SEGS% (MANUAL) 54 % (42-75)
[2019-10-12 06:03] LABS: SPHEROCYTES 1+
[2019-10-12 06:04] LABS: BASOPHILLIC STIPPLING 1+; HOWELL-JOLLY BODIES 1+; PAPPENHEIMER BODIES 1+; STOMATOCYTES 1+; TOXIC GRAN 1+
[2019-10-12 06:05] LABS: <PLATELET ESTIMATE> ADEQUATE; LARGE PLATELETS 1+
[2019-10-12 08:18] VITALS: BP 114/76
[2019-10-12 08:18] LABS: INTERNATIONAL NORMALIZED RATIO 1.15 (0.93-1.1)
[2019-10-12 08:32] LABS: BILIRUBIN,INDIRECT 2.1 mg/dL (0.0-2.0); BILIRUBIN,TOTAL 12.4 mg/dL (0.2-1.0)
[2019-10-12 08:36] LABS: BILIRUBIN, DIRECT 10.3 mg/dL (0.1-0.2)
[2019-10-12] MEDS: LIDODERM REMOVE PATCH NOTE XX SCH (09:30)
[2019-10-12] MEDS: APIXABAN 5 MG TABLET PO SCH ×2 (10:06→21:57)
[2019-10-12] MEDS: FAMOTIDINE 20 MG TABLET PO SCH ×2 (10:06→21:57)
[2019-10-12] MEDS: LEVOCARNITINE 330 MG TABLET PO SCH ×3 (10:06→21:58)
[2019-10-12] MEDS: CITALOPRAM 10 MG TABLET PO SCH ×2 (10:06→21:57)
[2019-10-12] MEDS: MULTIVITS,STRESS FORMULA 1 TABLET PO SCH (10:07)
[2019-10-12 12:38] VITALS: BP 108/77
[2019-10-12 13:34] LABS: ANA SCREEN NEGATIVE (Negative)
[2019-10-12 15:16] LABS: MEAN CORPUSCULAR HEMOGLOBIN 29.2 pg (27.0-34.8); MEAN CORPUSCULAR HGB CONC 32.1 g/dL (32.4-35.8); MEAN CORPUSCULAR VOLUME 90.9 fL (80-100); MEAN PLATELET VOLUME 10.3 fL (7.4-10.4); PLATELET COUNT 131 x10^3/uL (130-400); RED BLOOD COUNT 3.55 x10^6/uL (3.82-5.3); RED CELL DISTRIBUTION WIDTH 21.5 % (9.6-15.2)
[2019-10-12 15:17] LABS: MD YES
[2019-10-12 15:21] LABS: BAND#(MANUAL) 2.86 x10^3/uL; BANDS%(MANUAL) 14 % (0-7); LYMPH#(MANUAL) 0.61 x10^3/uL (1-3.4); LYMPHS% (MANUAL) 3 % (22-44); METAMYELOCYTES# (MANUAL) 2.04 x10^3/uL (0-0); METAMYELOCYTES% (MANUAL) 10 % (0-1); MONOS#(MANUAL) 0.41 x10^3/uL (0.3-2.7); MONOS% (MANUAL) 2 % (2-9); MYELOCYTES# (MANUAL) 1.02 x10^3/uL (0-0); MYELOCYTES% (MANUAL) 5 % (0-0); NRBC % (MANUAL) 38 % (0-1); SEG#(MANUAL) 13.46 x10^3/uL (1.8-6.8); SEGS% (MANUAL) 66 % (42-75)
[2019-10-12 15:22] LABS: ANISOCYTOSIS 2+; MICROCYTOSIS 1+; POLYCHROMASIA 2+
[2019-10-12 15:23] LABS: OVALOCYTES 1+; SPHEROCYTES 1+
[2019-10-12 15:26] LABS: HOWELL-JOLLY BODIES 1+; PAPPENHEIMER BODIES 1+
[2019-10-12 15:28] LABS: <PLATELET ESTIMATE> ADEQUATE; BASOPHILLIC STIPPLING 1+; LARGE PLATELETS 1+
[2019-10-12] MEDS: PROMETHAZINE 25MG TABLET PO PRN (15:30)
[2019-10-12 21:21] VITALS: BP 104/72
[2019-10-12] MEDS: LORazepam 2 MG/ML, 1ML IVPush PRN (22:12)
[2019-10-13 00:25] VITALS: BP 97/74
[2019-10-13 03:52] LABS: INTERNATIONAL NORMALIZED RATIO 1.15 (0.93-1.1)
[2019-10-13 03:54] LABS: ALANINE AMINOTRANSFERASE 164 U/L (12-78); ALBUMIN 1.5 g/dL (3.4-5.0); ANION GAP 8 mmol/L (5-15); CALCIUM 7.4 mg/dL (8.5-10.1); CHLORIDE 105 mmol/L (98-107)
[2019-10-13 03:57] LABS: ALKALINE PHOSPHATASE 167 U/L (45-117); BILIRUBIN,TOTAL 11.8 mg/dL (0.2-1.0); CREATININE 0.35 mg/dL (0.55-1.02); TOTAL PROTEIN 3.9 g/dL (6.4-8.2)
[2019-10-13 04:53] LABS: MD YES; MEAN CORPUSCULAR HEMOGLOBIN 28.5 pg (27.0-34.8); MEAN CORPUSCULAR HGB CONC 30.5 g/dL (32.4-35.8); MEAN CORPUSCULAR VOLUME 93.3 fL (80-100); MEAN PLATELET VOLUME 10.4 fL (7.4-10.4); PLATELET COUNT 119 x10^3/uL (130-400)
[2019-10-13 05:00] LABS: ANISOCYTOSIS 2+; BAND#(MANUAL) 0.97 x10^3/uL; BANDS%(MANUAL) 7 % (0-7); EOS#(MANUAL) 0.14 x10^3/uL (0.0-0.4); EOS% (MANUAL) 1 % (1-7); LYMPHS% (MANUAL) 5 % (22-44); METAMYELOCYTES# (MANUAL) 1.53 x10^3/uL (0-0); METAMYELOCYTES% (MANUAL) 11 % (0-1); MICROCYTOSIS 1+; MONOS#(MANUAL) 0.42 x10^3/uL (0.3-2.7); MONOS% (MANUAL) 3 % (2-9); MYELOCYTES# (MANUAL) 0.42 x10^3/uL (0-0); MYELOCYTES% (MANUAL) 3 % (0-0); NRBC % (MANUAL) 31 % (0-1); POLYCHROMASIA 2+; SEG#(MANUAL) 9.73 x10^3/uL (1.8-6.8); SEGS% (MANUAL) 70 % (42-75); SPHEROCYTES 1+
[2019-10-13 05:01] LABS: OVALOCYTES 1+; STOMATOCYTES 1+
[2019-10-13 05:02] LABS: BASOPHILLIC STIPPLING 1+; HOWELL-JOLLY BODIES 1+; PAPPENHEIMER BODIES 1+
[2019-10-13 05:03] LABS: <PLATELET ESTIMATE> DECREASED; LARGE PLATELETS 1+
[2019-10-13 06:48] VITALS: BP 104/70
[2019-10-13] MEDS: MULTIVITS,STRESS FORMULA 1 TABLET PO SCH (07:47)
[2019-10-13] MEDS: CITALOPRAM 10 MG TABLET PO SCH (07:47)
[2019-10-13] MEDS: FAMOTIDINE 20 MG TABLET PO SCH (07:47)
[2019-10-13] MEDS: APIXABAN 5 MG TABLET PO SCH ×2 (07:48→16:26)
[2019-10-13] MEDS: LIDODERM REMOVE PATCH NOTE XX SCH (07:48)
[2019-10-13] MEDS: LEVOCARNITINE 330 MG TABLET PO SCH ×2 (08:37→16:25)
[2019-10-13 08:51] LABS: MICROSCOPIC INDICATED
[2019-10-13 09:23] LABS: CULTURE INDICATED? YES
[2019-10-13] MEDS: PROMETHAZINE 25MG TABLET PO PRN (13:44)
[2019-10-13 14:09] VITALS: BP 110/76
[2019-10-13] MEDS ORDERED: PRED20TA PO (17:07)
== END 2019-10-13 18:01 | disposition home or self-care (01) | DRG 871 ==
LOC: ED 17:36 → EDIP 17:51 → 4NW 20:15
PROVIDERS: ADMIT Family Medicine; ATTEND Family Medicine
PROC: 30233N1 Transfusion of Nonautologous Red Blood Cells into Peripheral Vein, Percutaneous Approach (ICD-10-PCS; principal; 2019-10-08)
DX: A41.9 Sepsis, unspecified organism (principal); D61.810 Antineoplastic chemotherapy induced pancytopenia; B15.9 Hepatitis A without hepatic coma; C91.00 Acute lymphoblastic leukemia not having achieved remission; E87.1 Hypo-osmolality and hyponatremia; E87.2 Acidosis; N39.0 Urinary tract infection, site not specified; Z68.41 Body mass index [BMI] 40.0-44.9, adult; B96.1 Klebsiella pneumoniae [K. pneumoniae] as the cause of diseases classified elsewhere; E66.01 Morbid (severe) obesity due to excess calories; E83.51 Hypocalcemia; E88.09 Other disorders of plasma-protein metabolism, not elsewhere classified; K71.9 Toxic liver disease, unspecified; F41.9 Anxiety disorder, unspecified; K80.20 Calculus of gallbladder without cholecystitis without obstruction; K76.0 Fatty (change of) liver, not elsewhere classified; Z83.3 Family history of diabetes mellitus; T45.1X5A Adverse effect of antineoplastic and immunosuppressive drugs, initial encounter; Y92.89 Other specified places as the place of occurrence of the external cause
CPT/HCPCS: 36415; 87806; 99285; J3370; Q0169; 71045; 76700; 80048; 80053; 80076; 81001; 82107; 82140; 82247; 82248; 82390; 82525; 82607; 82728; 82784; 82977; 83516; 83540; 83550; 83605; 83615; 83690; 83735; 83930; 84100; 84300; 84550; 85014; 85018; 85025; 85610; 86038; 86708; 86790; 86803; 86850; 86900; 86923; 87040; 87077; 87086; 87186; 87324; 87340; 87493; 87517; 93005; G0378; J0696; J2405; G0475; J2060; J7030; J7512; P9040